=== PATIENT | female | born 1980 | race Caucasian/White ===

== ENCOUNTER 2018-06-04 11:14 | Emergency (ER) | payer BC ==
[~2018-06-04] VITALS: Ht 160 cm; Wt 69.9 kg
[2018-06-04 11:25] VITALS: BP_SYST 138
[2018-06-04 13:20] VITALS: BP_SYST 138
== END 2018-06-04 13:20 | disposition home or self-care (01) ==
LOC: SED 11:14
DX: M79.604 Pain in right leg (principal)
CPT/HCPCS: 81025; 93971; 99284

== ENCOUNTER 2019-05-14 09:07 | Emergency (ER) | payer BC ==
[~2019-05-14] VITALS: Ht 160 cm; Wt 72.6 kg
[2019-05-14 09:15] VITALS: BP_SYST 128
--- NOTE | 2019-05-14 09:43 | NUR ---
Patient to ER bed 8 to gown for evaluation. Side rails up. Report given to Isidro JIMENEZ.
--- NOTE | 2019-05-14 10:00 | NUR ---
Patient is awake, alert, and oriented x4. Patient is complaining of redness of eyes, swelling around eye, and itchy eyes since yesterday. Patient is complaining of blotchiness of face x2 weeks. Patient denies pain, nausea, and vomiting.
--- NOTE | 2019-05-14 10:40 | NUR ---
ER Dr. Stephanie Gee at bedside examining patient.
[2019-05-14 11:14] VITALS: BP_SYST 128
--- NOTE | 2019-05-14 11:14 | NUR ---
Patient given written and verbal discharge instructions and verbalizes understanding. ER MD discussed with patient the results and treatment provided. Patient in stable condition. ID arm band removed. Rx of gentamicin, certrizine, triamcinolone given. Patient educated on pain management and to follow up with PMD. Pain Scale 0/10. Opportunity for questions provided and answered. Medication side effect fact sheet provided.
== END 2019-05-14 11:14 | disposition home or self-care (01) ==
LOC: SED 09:07
DX: T78.49XA Other allergy, initial encounter (principal); H10.9 Unspecified conjunctivitis; R21 Rash and other nonspecific skin eruption; X58.XXXA Exposure to other specified factors, initial encounter
CPT/HCPCS: 99283

== ENCOUNTER 2021-04-22 19:26 | Emergency (ER) | payer BC ==
[~2021-04-22] VITALS: Ht 160 cm; Wt 70.3 kg
[2021-04-22 19:30] VITALS: BP_SYST 140
[2021-04-22 19:50] LABS: BASOPHILS % (AUTO) 0.7 % (0.0-2.0); EOSINOPHILS # (AUTO) 0.2 K/uL (0.0-0.4); EOSINOPHILS % (AUTO) 2.6 % (0.0-4.0); HEMATOCRIT 37.5 % (36-48); HEMOGLOBIN 12.7 g/dL (12.0-16.0); LYMPHOCYTES # (AUTO) 2.7 K/uL (1.0-5.5); LYMPHOCYTES % (AUTO) 36.3 % (20.5-51.5); MEAN CORPUSCULAR HEMOGLOBIN 33 pg (27-31); MEAN CORPUSCULAR HGB CONC 34 % (32-36); MEAN CORPUSCULAR VOLUME 98 fL (79.0-98.0); MONOCYTES # (AUTO) 0.6 K/uL (0.0-1.0); MONOCYTES % (AUTO) 7.6 % (1.7-9.3); NEUTROPHILS % (AUTO) 52.8 % (40.0-70.0); PLATELET COUNT (AUTO) 201 K/uL (130-430); RED BLOOD CELL COUNT(AUTO) 3.81 MIL/uL (4.2-6.2); RED CELL DISTRIBUTION WIDTH 13.1 % (9.0-15.0); WHITE BLOOD COUNT (AUTO) 7.6 K/uL (4.8-10.8)
[2021-04-22 20:13] LABS: C-REACTIVE PROTEIN QUANT 0.5 mg/dL (0-0.5)
[2021-04-22 20:22] LABS: ALBUMIN 3.3 g/dL (3.4-4.8); CALCIUM 8.5 mg/dL (8.4-11.0); CREATININE 1.7 mg/dL (0.55-1.30); FREE T4 (FREE THYROXINE) 0.9 ng/dl (0.8-1.5); POTASSIUM 4.3 mmol/L (3.5-5.1); THYROID STIMULATING HORMONE 1.69 uIu/mL (0.36-3.74); TOTAL BILIRUBIN 0.2 mg/dL (0.0-1.0)
[2021-04-22 20:25] LABS: PROTHROMBIN TIME 9.9 SECS (9.5-12.5)
[2021-04-22] MEDS ORDERED: CLIN300C12 PO (20:48)
[2021-04-22 20:55] VITALS: BP_SYST 133
== END 2021-04-22 20:55 | disposition home or self-care (01) ==
LOC: SED 19:26
DX: R59.0 Localized enlarged lymph nodes (principal); Z79.899 Other long term (current) drug therapy
CPT/HCPCS: 36415; 70490; 76376; 80053; 83605; 84439; 84443; 84703; 85025; 85610-TC; 85730-TC; 86140; 99284

== ENCOUNTER 2023-01-13 11:47 | Emergency (ER) | payer OTHER, BC ==
[~2023-01-13] VITALS: Ht 157.5 cm; Wt 65.8 kg
[~2023-01-13 11:47] MED LIST: CLIN-142 PO
[2023-01-13 11:55] VITALS: BP_SYST 119
--- NOTE | 2023-01-13 12:17 | NUR ---
Patient to ER bed h2 to gown for evaluation. Side rails up. Report given to Brionna .
--- NOTE | 2023-01-13 12:34 | NUR ---
ER Dr. Dawn at bedside examining patient.
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
[2023-01-13] MEDS ORDERED: ACET-2634 PO (12:49)
[2023-01-13 12:58] VITALS: BP_SYST 119
--- NOTE | 2023-01-13 12:58 | NUR ---
Patient given written and verbal discharge instructions and verbalizes understanding. ER Dr Mederoscussed with patient the results and treatment provided. Patient in stable condition. ID arm band removed. Rx of Tylenol given. Patient educated on pain management and to follow up with PMD. Pain Scale 2/10. Opportunity for questions provided and answered. Medication side effect fact sheet provided.
== END 2023-01-13 12:58 | disposition home or self-care (01) ==
LOC: SED 11:47
DX: M79.10 Myalgia, unspecified site (principal); M54.2 Cervicalgia; M25.512 Pain in left shoulder; M79.662 Pain in left lower leg; Z79.899 Other long term (current) drug therapy
CPT/HCPCS: 99283

== ENCOUNTER 2024-07-25 16:48 | Emergency (ER) | payer BC, OTHER ==
[~2024-07-25] VITALS: Ht 152.4 cm; Wt 68.0 kg
[~2024-07-25 16:48] MED LIST changes: +ACET-2634 PO
[2024-07-25 17:22] VITALS: BP_SYST 132; PULSE 65; RESP 18; TEMP 98.2; O2SAT 98
[2024-07-25] MEDS ORDERED: NEO/5DRO3 OP (17:42)
[2024-07-25] MEDS ORDERED: NAPR-688 PO (17:42)
[2024-07-25 17:51] VITALS: BP_SYST 132; PULSE 65; RESP 18; TEMP 98.2; O2SAT 98
== END 2024-07-25 17:49 | disposition home or self-care (01) ==
LOC: SED 16:48
DX: H15.103 Unspecified episcleritis, bilateral (principal); Z79.899 Other long term (current) drug therapy; Z79.2 Long term (current) use of antibiotics
CPT/HCPCS: 99283